=== PATIENT | female | born 1975 | race African-American/Black ===

== ENCOUNTER 2018-09-27 03:42 | Emergency (ER) | payer MEDICAID ==
[~2018-09-27] VITALS: Ht 170.2 cm; Wt 90.7 kg
[2018-09-27 04:00] VITALS: BP 128/82
--- NOTE | 2018-09-27 04:00 | NUR ---
ED Nurse Note: PATIENT AMBULATED TO ED C/O INNER RIGHT THIGH PAIN X 1900. DENIES FALL OR TRAUMA. Pt is AO x 4times, VSS, on room air no distress. ERMD seen Pt at bedside.
[2018-09-27] MEDS ORDERED: Tylenol #3 tab (300mg/30mg) ORAL ONE (04:15)
[2018-09-27] MEDS ORDERED: Methocarbamol 750mg tab ORAL ONE (04:15)
[2018-09-27] MEDS ORDERED: ACETAMINOPHEN-1 EAC1 ORAL (04:27)
[2018-09-27] MEDS ORDERED: LIDODERM700 M1 TOPIC (04:27)
[2018-09-27] MEDS ORDERED: ROBAXIN-750750 MG PO (04:27)
[2018-09-27 04:36] VITALS: BP 128/82
--- NOTE | 2018-09-27 04:38 | NUR ---
ER DISCHARGE NOTE: Patient is cleared to be discharged per ERMD, pt is aox4, on room air, with stable vital signs. pt was given dc and prescription instructions, pt was able to verbalize understanding, pt id band removed without complications. pt is able to ambulate with steady gait with mother. pt took all belongings.
--- NOTE | 2018-09-27 05:30 | Emergency Room Report ---
History of Present Illness General Chief Complaint: Pain Source: Patient Present Illness HPI 43-year-old female presents ED for evaluation. Complaining of right leg pain. States that he was started earlier today after playing with her grandkids all day. When she went to bed she felt pain in her right inner thigh. Pain is throbbing, 7 out of 10, nonradiating. Took ibuprofen without significant relief. Denies dysuria or hematuria. Denies nausea or vomiting. No other aggravating relieving factors. Denies any other associated symptoms Allergies: Coded Allergies: No Known Allergies (Unverified , 09/27/18) Patient History Past Medical History: none Past Surgical History: none Pertinent Family History: none Social History: Denies: smoking, alcohol use, drug use Last Menstrual Period: 09/17/18 Now: No Immunizations: UTD Reviewed Nursing Documentation: PMH: Agreed; PSxH: Agreed Nursing Documentation-PMH Past Medical History: No Stated History Review of Systems All Other Systems: negative except mentioned in HPI Physical Exam Vital Signs Date Time Temp Pulse Resp B/P (MAP) Pulse Ox O2 Delivery O2 Flow Rate FiO2 09/27/18 03:49 97.9 75 14 118/79 (92) 97 Room Air Sp02 EP Interpretation: reviewed, normal General Appearance: no apparent distress, alert, GCS 15, non-toxic, obese Head: normocephalic Eyes: bilateral eye normal inspection, bilateral eye PERRL ENT: normal ENT inspection Neck: normal inspection Respiratory: normal inspection Cardiovascular #1: normal inspection Gastrointestinal: normal bowel sounds, non tender, soft, non-distended, no guarding, no rebound Rectal: deferred Genitourinary: no CVA tenderness Musculoskeletal: back normal, gait/station normal, normal range of motion, tender - R quadriceps Neurologic: alert, oriented x3, responsive, motor strength/tone normal, sensory intact, speech normal Psychiatric: normal inspection Skin: normal inspection Lymphatic: normal inspection Medical Decision Making Diagnostic Impression: Primary Impression: Quadriceps muscle strain Qualified Codes: S76.111A - Strain of right quadriceps muscle, fascia and tendon, initial encounter ER Course Hospital Course 43-year-old female presents to ED complaining of R thigh pain no trauma Differential diagnoses include: Fracture, dislocation, sprain, contusion, bursitis Clinical course Patient placed on stretcher. After initial history, physical exam reveals an middle-aged female in no acute distress. There is some tenderness to the right inner thigh. No bony tenderness. No crepitus or bruising. No fluctuance or discharge. No inguinal pain. pain with external rotation Consistent with quadricep strain. Discussed findings with patient. No indication for imaging as there was no trauma. Patient agrees. Given Tylenol No. 3, Robaxin, Lidoderm here. Recommend modified activity, heat. Safe for discharge with close outpatient follow-up. Will provide Ortho referrals Diagnosis - quadriceps muscle strain stable and discharged to home with prescription for T#3, robaxin, lidoderm. Followup with PMD/ortho. Return to ED if symptoms recur or worsen Last Vital Signs Date Time Temp Pulse Resp B/P (MAP) Pulse Ox O2 Delivery O2 Flow Rate FiO2 09/27/18 04:36 98.4 86 16 128/82 97 Room Air Status: improved Disposition: HOME, SELF-CARE Condition: Stable Scripts Lidocaine (Lidoderm) 1 Each Adh..patch 1 PATCH TOPIC DAILY, #7 PATCH 0 Refills Patch(es) may remain in place for up to 12 hours in any 24-hour period. Prov: Aleks Villa MD 09/27/18 Methocarbamol* (ROBAXIN-750*) 750 Mg Tablet 750 MG PO TID, #21 TAB 0 Refills Prov: Aleks Villa MD 09/27/18 Acetaminophen With Codeine (T#3) (TYLENOL #3 TAB*) Y Tab 1 TAB ORAL Q8H PRN for For Pain, #12 TAB Prov: Aleks Villa MD 09/27/18 [facility] Open 24 hour /7 days a week by Appointment Only [address] [facility] [id number] Patient Instructions: Quadriceps Strain With [facility] Aleks Villa MD Sep 27, 2018 05:30
== END 2018-09-27 04:40 | disposition home or self-care (01) ==
LOC: EMR 04:00
DX: S76.111A Strain of right quadriceps muscle, fascia and tendon, initial encounter (principal); X58.XXXA Exposure to other specified factors, initial encounter; Y93.89 Activity, other specified; Y92.9 Unspecified place or not applicable
CPT/HCPCS: 99282

== ENCOUNTER 2020-01-15 16:42 | Emergency (ER) | payer MEDICAID ==
[~2020-01-15] VITALS: Ht 170.2 cm; Wt 85.3 kg
[~2020-01-15 16:42] MED LIST: ACETAMINOPHEN-1 EAC1 ORAL; LIDODERM700 M1 TOPIC; ROBAXIN-750750 MG PO
[2020-01-15 16:55] VITALS: BP 122/82
--- NOTE | 2020-01-15 16:55 | NUR ---
ED Nurse Note: PT walked in to ed for C/O swelling to bilatera foot x 4 days. denies any pain. denies any medical hx.
[2020-01-15] MEDS ORDERED: Ketorolac 30mg Inj IV ONE (17:15)
--- NOTE | 2020-01-15 18:13 | NUR ---
ED Nurse Note:blood and urine sent to labs , toradol given
[2020-01-15 18:21] LABS: APPEARANCE,URINE CLEAR; BILIRUBIN, URINE NEGATIVE (NEGATIVE); GLUCOSE, URINE (UA) NEGATIVE (NEGATIVE); KETONES,URINE NEGATIVE (NEGATIVE); LEUKOCYTE ESTERASE ,URINE 1+ (NEGATIVE); NITRITE,URINE NEGATIVE (NEGATIVE); PH,URINE 7 (4.5-8.0); PROTEIN,URINE NEGATIVE (NEGATIVE); UROBILINOGEN,URINE 12 MG/DL (0.0-1.0)
[2020-01-15 18:22] LABS: BASOPHILS % (AUTO) 1.4 % (0.0-2.0); EOSINOPHILS % (AUTO) 3.1 % (0.0-3.0); HEMATOCRIT 34.5 % (37.0-47.0); HEMOGLOBIN 11.4 G/DL (12.0-16.0); MEAN CORPUSCULAR VOLUME 101 FL (80-99); MONOCYTES % (AUTO) 11.3 % (1.0-10.0); NEUTROPHILS % (AUTO) 36.2 % (45.0-75.0); PLATELET COUNT 102 K/UL (150-450); RED CELL DISTRIBUTION WIDTH 16.4 % (11.6-14.8); WHITE BLOOD COUNT 4.4 K/UL (4.8-10.8)
[2020-01-15 18:24] LABS: COLOR,URINE YELLOW
[2020-01-15 18:31] LABS: ANION GAP 9 mmol/L (5-15); BLOOD UREA NITROGEN 12 mg/dL (7-18); CARBON DIOXIDE 24 MMOL/L (21-32); CHLORIDE 106 MMOL/L (98-107); CREATININE 0.8 MG/DL (0.55-1.30); POTASSIUM 3.3 MMOL/L (3.5-5.1); SODIUM 139 MMOL/L (136-145)
[2020-01-15 18:43] LABS: ALANINE AMINOTRANSFERASE 64 U/L (12-78); ALBUMIN 2.2 G/DL (3.4-5.0); ALBUMIN/GLOBULIN RATIO 0.5 (1.0-2.7); ALKALINE PHOSPHATASE 148 U/L (46-116); BILIRUBIN,TOTAL 1.5 MG/DL (0.2-1.0)
[2020-01-15 18:45] LABS: ASPARTATE AMINO TRANSFERASE 87 U/L (15-37)
--- NOTE | 2020-01-15 19:30 | NUR ---
ED Nurse Note: Recieved report from corky Florez to resume care, pt in room awake, alert and oriented x 4 and currently having bedside ultrasound for c/o edema, pt denies having chest pain or sob, saline lock noted intact to left ac, will resume care and continue to closely monitor.
[2020-01-15 20:00] VITALS: BP 129/88
--- NOTE | 2020-01-15 20:00 | NUR ---
ER DISCHARGE NOTE: Patient is cleared to be discharged per ERMD, pt is aox4, on room air, with stable vital signs. pt was given dc and prescription instructions, pt was able to verbalize understanding, pt id band and iv site removed without complications. pt is able to ambulate with steady gait. pt took all belongings.
--- NOTE | 2020-01-15 20:04 | Emergency Room Report ---
History of Present Illness General Chief Complaint: Edema Source: Patient Present Illness HPI 44-year-old female with no known significant past medical history here complaining of 3 days of bilateral feet swelling without any fall or injury. Reports that she is usually stands on her feet a lot and noted that her feet swell up throughout the day. Patient has not been taking medication for symptom relief. Denies any pain in feet or tingling or numbness. Denies any history of cardiac disease, chest pain, shortness of breath, headache or dizziness. Denies any diabetes and renal insufficiency. Reports her last blood work was beginning of 2019 and all within normal limits. Denies any urinary symptoms. Denies any calf tenderness, recent travel, being sedentary, recent abdominal surgery, and history of tobacco smoke. Denies . Allergies: Coded Allergies: No Known Allergies (Unverified , 09/27/18) COVID-19 Screening Contact w/high risk pt: No Experienced COVID-19 symptoms?: No COVID-19 Testing performed [facility] RN: No Patient History Past Medical History: see triage record Past Surgical History: none Pertinent Family History: none Last Menstrual Period: NA Immunizations: UTD Reviewed Nursing Documentation: PMH: Agreed; PSxH: Agreed Nursing Documentation-PMH Past Medical History: No Stated History Review of Systems All Other Systems: negative except mentioned in HPI Physical Exam Vital Signs Date Time Temp Pulse Resp B/P (MAP) Pulse Ox O2 Delivery O2 Flow Rate FiO2 01/15/20 16:50 98.4 76 16 122/82 (95) 97 Room Air Sp02 EP Interpretation: reviewed, normal General Appearance: no apparent distress, alert, GCS 15, non-toxic Head: normocephalic, atraumatic Eyes: bilateral eye normal inspection, bilateral eye PERRL ENT: hearing grossly normal, normal pharynx, no angioedema, normal voice Neck: full range of motion, supple/symm/no masses Respiratory: chest non-tender, lungs clear, normal breath sounds, speaking full sentences Cardiovascular #2: 2+ carotid (R), 2+ carotid (L), 2+ radial (R), 2+ radial (L), 2+ dorsalis pedis (R), 2+ dorsalis pedis (L) Gastrointestinal: normal bowel sounds, non tender, soft, non-distended, no guarding, no rebound Rectal: deferred Genitourinary: no CVA tenderness Musculoskeletal: back normal, no calf tenderness, pelvis stable, non-tender, swelling - Bilateral feet with pitting edema Neurologic: alert, motor strength/tone normal, oriented x3, sensory intact, responsive, speech normal Psychiatric: judgement/insight normal, memory normal, mood/affect normal, no suicidal/homicidal ideation Skin: no rash Lymphatic: no adenopathy Medical Decision Making PA Attestation All diagnoses and treatment plans were reviewed and discussed with my supervising physician Dr. Wong Diagnostic Impression: Primary Impression: Pedal edema ER Course 44-year-old female with no known significant past medical history here complaining of 3 days of bilateral feet swelling without any fall or injury. Reports that she is usually stands on her feet a lot and noted that her feet swell up throughout the day. Patient has not been taking medication for symptom relief. Denies any pain in feet or tingling or numbness. Denies any history of cardiac disease, chest pain, shortness of breath, headache or dizziness. Denies any diabetes and renal insufficiency. Reports her last blood work was beginning of 2019 and all within normal limits. Denies any urinary symptoms. Denies any calf tenderness, recent travel, being sedentary, recent abdominal surgery, and history of tobacco smoke. Denies . Ddx considered but are not limited to : Cellulitis, DVT, superficial infection, abscess, ZAINAB, CHF, PVD, Vital signs: are WNL, pt. is afebrile H&PE are most consistent with: Pedal edema most likely secondary to PVD, UTI ORDERS: CBC, CMP, UA, tox screen, BNP, troponin, EKG, chest x-ray, d-dimer, venous duplex ultrasound, Motrin, Keflex ED INTERVENTIONS: Toradol DISCHARGE: At this time pt. is stable for d/c to home. Will provide printed patient care instructions, and any necessary prescriptions. Care plan and follow up instructions have been discussed with the patient prior to discharge. Take medication as directed, follow primary training and development project leader also for compression stocking, if worsening symptoms return to the emergency room at this time no further evaluation is needed patient does not have any chest pain or shortness of breath. I believe patient will benefit from diuretics to be prescribed doctor. EKG Diagnostic Results Rate: normal Rhythm: NSR ST Segments: no acute changes Other Impression No acute ST changes ASA given to the pt in ED: No Chest X-Ray Diagnostic Results Chest X-Ray Diagnostic Results : Chest X-Ray Ordered: Yes # of Views/Limited/Complete: 1 View Indication: Other EP Interpretation: Yes PA Xray: Interpretation reviewed, by supervising MD, and agrees with findings. Interpretation: no consolidation, no effusion, no pneumothorax, no acute cardiopulmonary disease Impression: No acute disease Electronically Signed by: Shayy Diallo PA-C CT/MRI/US Diagnostic Results CT/MRI/US Diagnostic Results : Imaging Test Ordered: Venous duplex ultrasound bilateral lower extremities Impression Negative DVT Last Vital Signs Date Time Temp Pulse Resp B/P (MAP) Pulse Ox O2 Delivery O2 Flow Rate FiO2 01/15/20 19:19 98.4 01/15/20 16:55 76 16 Room Air 01/15/20 16:55 122/82 97 Disposition: HOME, SELF-CARE Condition: Stable Scripts Cephalexin* (KEFLEX*) 500 Mg Capsule 500 MG ORAL EVERY 12 HOURS for 7 Days, #14 CAP 0 Refills Prov: Shayy Velasquez 01/15/20 Ibuprofen* (MOTRIN*) 600 Mg Tablet 600 MG ORAL Q6HR, #20 TAB Prov: Shayy Velasquez 01/15/20 Referrals: [facility],REFERRING (PCP) Patient Instructions: Edema, [id number] Additional Instructions: Take medication as directed, follow-up with primary care provider for further evaluation referral to training and development project leader may be needed, worsening symptom return to the emergency Shayy Velasquez Jan 15, 2020 20:04
[2020-01-15] MEDS ORDERED: IBUPROFEN600 M1 ORAL (20:05)
[2020-01-15 20:12] VITALS: BP 129/88
[2020-01-15] MEDS ORDERED: CEPHALEXIN500 MG ORAL (20:15)
--- NOTE | 2020-01-15 22:20 | Diagnostic Imaging Report ---
Indication: Shortness of breath Technique: One view of the chest Comparison: none Findings: Lungs and pleural spaces are clear. Heart size is normal. Impression: No acute process
--- NOTE | 2020-01-16 15:53 | Diagnostic Imaging Report ---
Indication: Reason For Exam: DVT Technique: Grayscale and duplex images of the bilateral lower extremity veins Comparison: None Findings: Bilaterally, grayscale and duplex images demonstrate no evidence of intraluminal thrombus. Normal phasic Doppler waveforms, demonstrating normal augmentation response and no evidence of valvular insufficiency. Greater saphenous vein(s) and tibial veins are patent. Normal compressibility. Impression: Negative for evidence of lower extremity deep venous thrombosis bilaterally
--- NOTE | 2020-01-20 06:18 | Cardiology Report ---
APPROVED REPORT EKG Measurement Heart [id number] <Conclusion> Normal sinus rhythm Normal ECG
== END 2020-01-15 20:12 | disposition home or self-care (01) ==
LOC: EMR 17:15
DX: R60.9 Edema, unspecified (principal)
CPT/HCPCS: 36415; 71045; 80053; 81003; 81025; 82248; 83880; 84484; 85025; 85379; 85651; 87086; 87181; 93005; 93970; 96374; J1885; Z7502; 99284